=== PATIENT | male | born 1975 | race Caucasian/White ===

== ENCOUNTER 2020-06-16 03:00 | Emergency (ER) | payer MEDICAID ==
[~2020-06-16] VITALS: Ht 175.3 cm; Wt 72.7 kg
[~2020-06-16 03:00] MED LIST: CLIN-97 PO; MAGN400C PO; POTA-82 PO
[2020-06-16 03:16] VITALS: BP 111/84
--- NOTE | 2020-06-16 05:06 | NUR ---
PT REQUESTS SOMETHING FOR HIS SEVERE PAIN TO HIS LEFT WRIST. HE IS ON THE GURNEY SHAKING. GIVEN BLANKETS. I REPORT TO HIM THAT I NEED TO DRAW LABS. DR. ELLIS UPDATED AND VERBAL RECEIVED FOR NAPROXEN.
[2020-06-16] MEDS ORDERED: naproxen 500mg tablet PO ONE (05:10)
--- NOTE | 2020-06-16 05:19 | NUR ---
PT UPDATED THAT MD HAS ORDERED NAPROXIN FOR HIS PAIN. HE STATED, "THIS IS THE WORST PAIN IV EVER BEEN IN...I'M LEAVINIG...I'M GOING TO THE OTHER HOSPITAL...". PT ENCOURAGED TO TRY THE NAPROXIN AND ALLOW ME TO AT LEAST DRAW THE LABS AND GET THEM STARTED, BUT HE CONTINIUED WALKING AND STATED MULTIPLE TIMES,"I ANSWERED THE DRUG QUESTION WRONG". DR. ELLIS WITNESSED THE PATIENT WALKING OUT AND THEN UPDATED OF ABOVE. TAKER AWAY, MAYKEL, ALSO UPDATED. PT THEN IN LOBBY AND REQUESTED TO HAVE HIS XRAY RECORDS. I UPDATED HIM THEY WOULD BE AVAILABLE TO ANOTHER HOSPITAL EASILY ONCE THEY REQUEST THEM AND THAT HE CAN FILL OUT A MEDICAL RECORDS REQUEST FORM, BUT THEY ARE TAKING LONGER TO MAIL THESE OUT DUE TO COVID.
[2020-06-16] MEDS ORDERED: sulfamethoxazole/trimethoprim DS (800/160mg) tablet PO ONE (05:20)
--- NOTE | 2020-06-16 05:26 | NUR ---
PT AMA PER DR. ELLIS
[2020-06-16] MEDS ORDERED: CLIN150C8 PO (15:16)
[2020-06-16] MEDS ORDERED: NAPR-56 PO (15:38)
== END 2020-06-16 05:30 | disposition left against medical advice (07) ==
LOC: ER 03:01
DX: S66.912A Strain of unspecified muscle, fascia and tendon at wrist and hand level, left hand, initial encounter (principal); L03.114 Cellulitis of left upper limb; F15.10 Other stimulant abuse, uncomplicated; F17.200 Nicotine dependence, unspecified, uncomplicated; F12.90 Cannabis use, unspecified, uncomplicated; Z59.0 Homelessness; Z72.89 Other problems related to lifestyle; Z79.2 Long term (current) use of antibiotics; Z79.899 Other long term (current) drug therapy; W17.89XA Other fall from one level to another, initial encounter; Y93.89 Activity, other specified; Y92.89 Other specified places as the place of occurrence of the external cause; Y99.8 Other external cause status
CPT/HCPCS: 73110; 99283; 99284

== ENCOUNTER 2020-06-16 13:40 | Emergency (ER) | payer MEDICAID ==
[~2020-06-16] VITALS: Ht 175.3 cm; Wt 72.7 kg
[2020-06-16 14:02] VITALS: BP 124/81
--- NOTE | 2020-06-16 14:28 | NUR ---
PT RPEORTS THAT HE DID NOT TAKE SEPTRA OR TYLENOL THIS AM.
[2020-06-16] MEDS ORDERED: CLIN150C8 PO (15:16)
[2020-06-16] MEDS ORDERED: clindamycin 150mg capsule PO ONE (15:20)
[2020-06-16] MEDS ORDERED: ondansetron 4mg rapidly disintigrating tab PO ONE (15:20)
[2020-06-16] MEDS ORDERED: naproxen 500mg tablet PO ONE (15:30)
[2020-06-16] MEDS ORDERED: NAPR-56 PO (15:38)
--- NOTE | 2020-06-16 15:45 | NUR ---
Pt left prior to receiving medication.
== END 2020-06-16 15:47 | disposition home or self-care (01) ==
LOC: ER 13:42
DX: L03.114 Cellulitis of left upper limb (principal); F12.90 Cannabis use, unspecified, uncomplicated; F15.90 Other stimulant use, unspecified, uncomplicated; Z59.0 Homelessness; Z72.89 Other problems related to lifestyle; Z86.19 Personal history of other infectious and parasitic diseases; Z79.2 Long term (current) use of antibiotics; Z79.899 Other long term (current) drug therapy
CPT/HCPCS: 99283

== ENCOUNTER 2020-06-17 20:42 | Inpatient (IN) | payer MEDICAID ==
[~2020-06-17] VITALS: Ht 175.3 cm; Wt 65.3 kg
[2020-06-17 18:00] VITALS: BP 109/62
[~2020-06-17 20:42] MED LIST changes: +CLIN150C8 PO; +NAPR-56 PO
[2020-06-17 22:42] LABS: BASOPHILS # (AUTO) 0.1 X10'3 (0-0.2); BASOPHILS % (AUTO) 0.6 % (0-1); EOSINOPHILS # (AUTO) 0.3 X10'3 (0-0.9); EOSINOPHILS % (AUTO) 3.1 % (0-6); HEMATOCRIT 43.2 % (42.0-52.0); HEMOGLOBIN 14.6 g/dl (14.0-17.9); LYMPHOCYTES # (AUTO) 1.8 X10'3 (1.1-4.8); MEAN CORPUSCULAR HGB CONC 33.8 g/dL (33.0-36.5); MEAN CORPUSCULAR VOLUME 94.8 FL (78-98); MEAN PLATELET VOLUME 7.4 FL (7.4-10.4); MONOCYTES # (AUTO) 0.8 X10'3 (0-0.9); MONOCYTES % (AUTO) 8.2 % (2-12); NEUTROPHILS # (AUTO) 6.9 X10'3 (1.8-7.7); NEUTROPHILS % (AUTO) 70.1 % (42-75); PLATELET COUNT 293 X10'3 (140-440); RED BLOOD COUNT 4.55 X10'6 (4.70-6.10); RED CELL DISTRIBUTION WIDTH 13.4 % (11.5-14.5); WHITE BLOOD COUNT 9.9 X10'3 (4.5-11.0)
[2020-06-17] MEDS ORDERED: piperacillin/tazo 3.375gm/50ml 50 ML IV ONE (22:55)
[2020-06-17] MEDS ORDERED: vancomycin/NS 1 GM ADD-VANTAGE 250 ML IV ONE (22:55)
[2020-06-17 22:57] LABS: ALANINE AMINOTRANSFERASE 33 U/L (12-78); ALBUMIN 3.4 G/DL (3.4-5.0); ALBUMIN/GLOBULIN RATIO 0.8 (1.1-1.5); ALKALINE PHOSPHATASE 123 IU/L (46-116); ANION GAP 5 (8-16); ASPARTATE AMINO TRANSFERASE 17 U/L (10-37); BILIRUBIN,TOTAL 0.4 MG/DL (0.1-1.0); BLOOD UREA NITROGEN 18 MG/DL (7-18); BUN/CREATININE RATIO 14.8 (5.4-32.0); CALCIUM 9.5 MG/DL (8.5-10.1); CHLORIDE 104 MMOL/L (99-107); CREATININE 1.22 MG/DL (0.60-1.10); GLUCOSE 117 MG/DL (70-104); POTASSIUM 3.8 MMOL/L (3.5-5.1); SODIUM 139 MMOL/L (135-145); TOTAL CARBON DIOXIDE 29.9 MMOL/L (24-32); TOTAL PROTEIN 7.5 G/DL (6.4-8.2); eGFR 65 ML/MIN
[2020-06-17] MEDS ORDERED: normal saline 1000ML IV soln IVB ONE (23:15)
[2020-06-17] MEDS ORDERED: mag hydrox/Alum hydrox/simeth 30ml oral suspension PO PRN (23:45)
[2020-06-17] MEDS ORDERED: potassium Cl 20 mEq SR tablet PO PRN ×2 (23:45)
[2020-06-17] MEDS ORDERED: magnesium 2GM in 50ml NS 50 ML IV PRN (23:45)
[2020-06-17] MEDS ORDERED: magnesium hydroxide 30ml (MOM) UD suspension PO PRN (23:45)
[2020-06-17] MEDS ORDERED: HYDROcodone/acetaminophen 5mg/325mg tablet PO PRN (23:45)
[2020-06-17] MEDS ORDERED: ondansetron/PF 4mg/2ml inj IV PRN (23:45)
[2020-06-17] MEDS ORDERED: magnesium 4gm in 100ml NS 100 ML IV PRN (23:45)
[2020-06-17] MEDS ORDERED: ipratropium/albuterol 3ml nebule NEB PRN (23:45)
[2020-06-17] MEDS ORDERED: potassium Cl 40MEQ/1/2NS 520ml 520 ML IV PRN ×2 (23:45)
[2020-06-17] MEDS ORDERED: acetaminophen 325mg tablet PO PRN ×2 (23:45)
[2020-06-18] MEDS: normal saline 1000ml 1,000 ML IV SCH ×3 (00:43→19:45)
--- NOTE | 2020-06-18 01:29 | NUR ---
I have received report from TIFFNAY Petit and had the opportunity to ask questions and assume patient care. 0030: Patient arrived to unit via wheel chair and his bag of belongings. The bag contained shirt, cell phone, and breakfast manager. It also had two medications (ABX)which he got 06/16 clindamycin, and Naproxen. Medications will be sent down to pharmacy. Patient is wearing his jeans, socks, and his shoes are at his bedside.
--- NOTE | 2020-06-18 04:27 | NUR ---
First set of vitals were done at 0030 of 05/19, not 05/18 at 1800 Addendum: 06/18/20 at 0428 by Deepak Amos RN Amended: Links added.
--- NOTE | 2020-06-18 06:23 | NUR ---
Problems reprioritized. Patient report given, questions answered & plan of care reviewed with TIFFANY Rosas.
--- NOTE | 2020-06-18 06:39 | NUR ---
Patient in room IAN 344. I have received report from TIFFANY MOORE and had the opportunity to ask questions and assume patient care.
[2020-06-18 07:06] LABS: BASOPHILS # (AUTO) 0.1 X10'3 (0-0.2); BASOPHILS % (AUTO) 0.7 % (0-1); EOSINOPHILS # (AUTO) 0.4 X10'3 (0-0.9); EOSINOPHILS % (AUTO) 4.3 % (0-6); HEMATOCRIT 42.6 % (42.0-52.0); HEMOGLOBIN 14.4 g/dl (14.0-17.9); LYMPHOCYTES # (AUTO) 2.1 X10'3 (1.1-4.8); LYMPHOCYTES % (AUTO) 23.5 % (21-51); MEAN CORPUSCULAR HEMOGLOBIN 32.4 PG (27.0-31.0); MEAN CORPUSCULAR HGB CONC 33.9 g/dL (33.0-36.5); MEAN CORPUSCULAR VOLUME 95.8 FL (78-98); MEAN PLATELET VOLUME 7.8 FL (7.4-10.4); MONOCYTES # (AUTO) 0.9 X10'3 (0-0.9); MONOCYTES % (AUTO) 10.3 % (2-12); NEUTROPHILS # (AUTO) 5.6 X10'3 (1.8-7.7); NEUTROPHILS % (AUTO) 61.2 % (42-75); PLATELET COUNT 255 X10'3 (140-440); RED BLOOD COUNT 4.45 X10'6 (4.70-6.10); RED CELL DISTRIBUTION WIDTH 13.2 % (11.5-14.5); WHITE BLOOD COUNT 9.1 X10'3 (4.5-11.0)
[2020-06-18 07:18] LABS: ALANINE AMINOTRANSFERASE 28 U/L (12-78); ALBUMIN 2.7 G/DL (3.4-5.0); ALBUMIN/GLOBULIN RATIO 0.7 (1.1-1.5); ALKALINE PHOSPHATASE 105 IU/L (46-116); ANION GAP 7 (8-16); ASPARTATE AMINO TRANSFERASE 16 U/L (10-37); BILIRUBIN,TOTAL 0.3 MG/DL (0.1-1.0); BLOOD UREA NITROGEN 18 MG/DL (7-18); BUN/CREATININE RATIO 19.4 (5.4-32.0); CALCIUM 8.5 MG/DL (8.5-10.1); CHLORIDE 108 MMOL/L (99-107); CREATININE 0.93 MG/DL (0.60-1.10); GLUCOSE 100 MG/DL (70-104); POTASSIUM 3.8 MMOL/L (3.5-5.1); SODIUM 141 MMOL/L (135-145); TOTAL CARBON DIOXIDE 26.4 MMOL/L (24-32); TOTAL PROTEIN 6.7 G/DL (6.4-8.2); eGFR 88 ML/MIN
[2020-06-18 08:00] VITALS: BP 126/78
[2020-06-18] MEDS: K and/or MAG REPLACEMENT MC SCH ×2 (08:00→20:00)
[2020-06-18] MEDS: HYDROcodone/acetaminophen 10/325mg tab PO PRN ×4 (08:01→20:23)
[2020-06-18] MEDS: piperacillin/tazo 3.375gm/50ml 50 ML IV SCH ×2 (08:01→16:26)
[2020-06-18] MEDS ORDERED: vancomycin/NS 1 GM ADD-VANTAGE 250 ML IV SCH (10:00)
--- NOTE | 2020-06-18 10:29 | NUR ---
promotional table spacer PAGER ID: [phone] MESSAGE: Ada/surgical [id number]. Pt: Kimberly. Rm: 344-A Pt requesting more pain med. gave Basehor 10 2hr ago. threatening to leave AMA. thank Dr Amato called back. He will re-eval pain meds after seeing pt. ok if pt wants to leave AMA.
[2020-06-18 11:00] VITALS: BP 135/72
[2020-06-18] MEDS ORDERED: NAPR-996 PO (11:04)
[2020-06-18] MEDS ORDERED: CLIN-30 PO (11:04)
[2020-06-18] MEDS: nicotine 21mg patch - 24 hr TD SCH (11:12)
--- NOTE | 2020-06-18 11:20 | NUR ---
Pt decided no to leave at this time. states he will stay because he wants to have the MRI done.
[2020-06-18] MEDS: vancomycin/NS 1 GM ADD-VANTAGE 250 ML IV SCH ×2 (11:32→23:35)
--- NOTE | 2020-06-18 18:30 | NUR ---
Problems reprioritized. Patient report given, questions answered & plan of care reviewed with Leah RN.
[2020-06-18 19:30] VITALS: BP 121/69
[2020-06-18] MEDS: enoxaparin 40mg/0.4ml syringe SQ SCH (20:05)
[2020-06-18 23:30] VITALS: BP 127/78
[2020-06-19] MEDS: HYDROcodone/acetaminophen 10/325mg tab PO PRN ×5 (00:51→20:40)
[2020-06-19] MEDS: piperacillin/tazo 3.375gm/50ml 50 ML IV SCH ×3 (01:24→16:39)
[2020-06-19] MEDS: normal saline 1000ml 1,000 ML IV SCH ×2 (05:56→16:39)
[2020-06-19 06:00] LABS: EOSINOPHILS # (AUTO) 0.4 X10'3 (0-0.9); WHITE BLOOD COUNT 9.9 X10'3 (4.5-11.0)
[2020-06-19 06:02] LABS: BASOPHILS # (AUTO) 0.1 X10'3 (0-0.2); BASOPHILS % (AUTO) 0.8 % (0-1); EOSINOPHILS % (AUTO) 3.9 % (0-6); HEMATOCRIT 43.4 % (42.0-52.0); HEMOGLOBIN 14.9 g/dl (14.0-17.9); MEAN CORPUSCULAR HEMOGLOBIN 32.8 PG (27.0-31.0); MEAN CORPUSCULAR HGB CONC 34.4 g/dL (33.0-36.5); MEAN CORPUSCULAR VOLUME 95.4 FL (78-98); MEAN PLATELET VOLUME 7.3 FL (7.4-10.4); MONOCYTES # (AUTO) 0.9 X10'3 (0-0.9); MONOCYTES % (AUTO) 8.8 % (2-12); NEUTROPHILS # (AUTO) 6.6 X10'3 (1.8-7.7); NEUTROPHILS % (AUTO) 66.5 % (42-75); PLATELET COUNT 290 X10'3 (140-440); RED BLOOD COUNT 4.55 X10'6 (4.70-6.10); RED CELL DISTRIBUTION WIDTH 13.6 % (11.5-14.5)
[2020-06-19 06:27] LABS: ALANINE AMINOTRANSFERASE 34 U/L (12-78); ALBUMIN 2.8 G/DL (3.4-5.0); ALBUMIN/GLOBULIN RATIO 0.6 (1.1-1.5); ALKALINE PHOSPHATASE 114 IU/L (46-116); ANION GAP 10 (8-16); ASPARTATE AMINO TRANSFERASE 24 U/L (10-37); BILIRUBIN,TOTAL 0.5 MG/DL (0.1-1.0); BLOOD UREA NITROGEN 9 MG/DL (7-18); BUN/CREATININE RATIO 10.7 (5.4-32.0); CALCIUM 8.9 MG/DL (8.5-10.1); CHLORIDE 105 MMOL/L (99-107); CREATININE 0.84 MG/DL (0.60-1.10); GLUCOSE 96 MG/DL (70-104); MAGNESIUM 1.9 MG/DL (1.5-2.4); SODIUM 140 MMOL/L (135-145); TOTAL CARBON DIOXIDE 25.2 MMOL/L (24-32); TOTAL PROTEIN 7.4 G/DL (6.4-8.2); eGFR > 90 ML/MIN
--- NOTE | 2020-06-19 06:30 | NUR ---
Patient in room IAN 344. I have received report from TIFFANY Lynn and had the opportunity to ask questions and assume patient care.
[2020-06-19 07:00] VITALS: BP 120/79
[2020-06-19] MEDS: K and/or MAG REPLACEMENT MC SCH ×2 (07:00→19:36)
[2020-06-19] MEDS: lactobacillus rhamnosus 10,000 MMU CELLS/CAPSULE PO SCH ×2 (07:55→19:41)
[2020-06-19] MEDS: nicotine 21mg patch - 24 hr TD SCH (07:56)
[2020-06-19 11:00] VITALS: BP 115/77
[2020-06-19] MEDS ORDERED: VANCOMYCIN LEVEL IV ONE (11:30)
[2020-06-19] MEDS: vancomycin/NS 1 GM ADD-VANTAGE 250 ML IV SCH (11:52)
--- NOTE | 2020-06-19 17:30 | NUR ---
Primary nurse into give patient pain medication. Patient stating that he wants to leave AMA at midnight. Patient was encouraged to stay and educated about the risks involved with leaving AMA. Patient stated and understanding of the teaching and said, "I don't know we will see, it is new years pattie you know?".
[2020-06-19 18:00] VITALS: BP 114/61
--- NOTE | 2020-06-19 18:19 | NUR ---
Problems reprioritized. Patient report given, questions answered & plan of care reviewed with TIFFANY Govea.
--- NOTE | 2020-06-19 18:40 | NUR ---
Patient in room IAN 344. I have received report from LALIT ALLEN and had the opportunity to ask questions and assume patient care.
--- NOTE | 2020-06-19 19:46 | NUR ---
PATIENT REFUSED LOVENOX AND WAS EDUCATED .
[2020-06-19] MEDS: enoxaparin 40mg/0.4ml syringe SQ SCH (19:47)
[2020-06-20] VITALS: BP 118/61
[2020-06-20] MEDS: HYDROcodone/acetaminophen 10/325mg tab PO PRN ×2 (00:52→04:48)
[2020-06-20] MEDS: piperacillin/tazo 3.375gm/50ml 50 ML IV SCH ×2 (00:52→07:34)
[2020-06-20] MEDS: normal saline 1000ml 1,000 ML IV SCH ×2 (01:45→04:52)
--- NOTE | 2020-06-20 04:31 | NUR ---
PATIENT ATTEMPTED TO LEAVE AMA DUE TO PAIN MEDICATIONS NOT GIVE ACCORDING TO HIS SCHEDULE. EXPLAINED TO PATIENT THE FREQUENCY OF HIS PAIN MEDS AND DID NOT WANT TO COMPLY. MD NOTIFIED AND CHARGE NURSE AWARE. WILL ADMINISTER MEDS PER MD ORDER.
--- NOTE | 2020-06-20 06:34 | NUR ---
Problems reprioritized. Patient report given, questions answered & plan of care reviewed with KYLE ALLEN.
[2020-06-20] MEDS: nicotine 21mg patch - 24 hr TD SCH (07:34)
[2020-06-20] MEDS: lactobacillus rhamnosus 10,000 MMU CELLS/CAPSULE PO SCH (07:34)
--- NOTE | 2020-06-20 09:11 | NUR ---
PATIENT HAD HIS PAIN MED THIS MORNING AT 0448. HE ASKED FOR A PAIN MED WHEN I CAME IN TO GIVE HIM HIS MORNING MEDS. I LET HIM KNOW THAT HE WAS DUE FOR A PRN 10 NORCO AT 0848. AT 0852 I WENT IN HIS ROOM TO GIVE HIM HIS PAIN PILL AND HE WAS DRESSED AND STATED, I'M LEAVING. I ASKED WHY HE SAID I DIDN'T GET MY PAIN PILL. I STATED, I'M HERE TO GIVE YOU YOUR PAIN MED.I EXPLAINED TO THE PATIENT THAT IT IS CURRENTLY 0852 AND I'M HERE TO GIVE YOU THE PAIN MED YOU REQUESTED. I DON'T UNDERSTAND WHY YOU CAN'T WAIT 4 MINUTES. HE WAS PLEASANT BUT STATED HE NEEDS TO GO HOME AND TAKE HIS PAIN PILLS, AND THEN AFTER HE TAKES THEM HE WILL COME BACK THROUGH THE ER AND ADMIT HIMSELF AGAIN. PATIENT, LET ME TAKE OUT HIS IV AND SIGNED AMA PAPER. HOSPITALIST NOTIFIED. CHARGE SPOKE WITH PATIENT ALSO.
[2020-06-21] MEDS ORDERED: VANCOMYCIN LEVEL IV ONE (11:30)
== END 2020-06-20 08:58 | disposition left against medical advice (07) | DRG 383 ==
LOC: ER 20:43 → ED HOLD 23:44 → SUR 3N 06-18 00:30
PROVIDERS: ADMIT Family Medicine; ATTEND Family Medicine
DX: L03.114 Cellulitis of left upper limb (principal); B19.20 Unspecified viral hepatitis C without hepatic coma; F15.10 Other stimulant abuse, uncomplicated; Z53.29 Procedure and treatment not carried out because of patient's decision for other reasons; Z87.891 Personal history of nicotine dependence
CPT/HCPCS: 36415; 73218; 80053; 80202; 83605; 83735; 84145; 85025; 87040; 87081; 94760; 96365; 99285; G0378; J1650; J2543; J3370; J7030

== ENCOUNTER 2020-06-20 13:54 | Inpatient (IN) | payer MEDICAID ==
[~2020-06-20] VITALS: Ht 175.3 cm; Wt 78.7 kg
[~2020-06-20 13:54] MED LIST changes: +CLIN-30 PO; -CLIN-97 PO; -CLIN150C8 PO; -MAGN400C PO; -NAPR-56 PO; +NAPR-996 PO; -POTA-82 PO
[2020-06-20] MEDS ORDERED: ondansetron/PF 4mg/2ml inj IV ONE (18:50)
[2020-06-20] MEDS ORDERED: morphine 4 MG/ML inj SYRINge IV ONE (18:50)
[2020-06-20] MEDS ORDERED: normal saline 1000ml 1,000 ML IV ONE (19:00)
[2020-06-20 19:24] LABS: BASOPHILS % (AUTO) 0.3 % (0-1); EOSINOPHILS # (AUTO) 0.2 X10'3 (0-0.9); EOSINOPHILS % (AUTO) 2.2 % (0-6); HEMATOCRIT 45.6 % (42.0-52.0); HEMOGLOBIN 15.7 g/dl (14.0-17.9); LYMPHOCYTES # (AUTO) 1.5 X10'3 (1.1-4.8); LYMPHOCYTES % (AUTO) 15.1 % (21-51); MEAN CORPUSCULAR HEMOGLOBIN 32.8 PG (27.0-31.0); MEAN CORPUSCULAR HGB CONC 34.5 g/dL (33.0-36.5); MEAN CORPUSCULAR VOLUME 94.9 FL (78-98); MEAN PLATELET VOLUME 7.3 FL (7.4-10.4); MONOCYTES # (AUTO) 0.6 X10'3 (0-0.9); MONOCYTES % (AUTO) 5.5 % (2-12); NEUTROPHILS # (AUTO) 7.8 X10'3 (1.8-7.7); NEUTROPHILS % (AUTO) 76.9 % (42-75); PLATELET COUNT 320 X10'3 (140-440); RED CELL DISTRIBUTION WIDTH 13.4 % (11.5-14.5); WHITE BLOOD COUNT 10.1 X10'3 (4.5-11.0)
[2020-06-20 19:38] LABS: ALANINE AMINOTRANSFERASE 47 U/L (12-78); ALBUMIN 3.2 G/DL (3.4-5.0); ALBUMIN/GLOBULIN RATIO 0.6 (1.1-1.5); ALKALINE PHOSPHATASE 143 IU/L (46-116); ANION GAP 13 (8-16); ASPARTATE AMINO TRANSFERASE 38 U/L (10-37); BILIRUBIN,TOTAL 0.2 MG/DL (0.1-1.0); BLOOD UREA NITROGEN 11 MG/DL (7-18); BUN/CREATININE RATIO 11.8 (5.4-32.0); CALCIUM 9.5 MG/DL (8.5-10.1); CHLORIDE 104 MMOL/L (99-107); CREATININE 0.93 MG/DL (0.60-1.10); GLUCOSE 101 MG/DL (70-104); POTASSIUM 4.1 MMOL/L (3.5-5.1); SODIUM 143 MMOL/L (135-145); TOTAL CARBON DIOXIDE 26.2 MMOL/L (24-32); TOTAL PROTEIN 8.5 G/DL (6.4-8.2); eGFR 88 ML/MIN
[2020-06-20] MEDS ORDERED: ondansetron/PF 4mg/2ml inj IV PRN (20:55)
[2020-06-20] MEDS ORDERED: mag hydrox/Alum hydrox/simeth 30ml oral suspension PO PRN (20:55)
[2020-06-20] MEDS ORDERED: magnesium hydroxide 30ml (MOM) UD suspension PO PRN (20:55)
[2020-06-20] MEDS ORDERED: acetaminophen 325mg tablet PO PRN (20:55)
[2020-06-20] MEDS ORDERED: potassium Cl 20 mEq SR tablet PO PRN ×2 (20:55)
[2020-06-20] MEDS ORDERED: potassium Cl 40MEQ/1/2NS 520ml 520 ML IV PRN ×2 (20:55)
[2020-06-20] MEDS ORDERED: HYDROcodone/acetaminophen 5mg/325mg tablet PO PRN (20:55)
[2020-06-20] MEDS ORDERED: magnesium 2GM in 50ml NS 50 ML IV PRN (20:55)
[2020-06-20] MEDS ORDERED: magnesium Cl slow-release 64mg tablet PO PRN (20:55)
[2020-06-20] MEDS ORDERED: magnesium 4gm in 100ml NS 100 ML IV PRN (20:55)
[2020-06-20] MEDS ORDERED: temazepam 15mg capsule PO PRN (21:00)
[2020-06-20] MEDS: VANCOmycin 1250MG/NS 250ml Bag 250 ML IV SCH (22:47)
[2020-06-21] MEDS: piperacillin/tazo 4.5gm/100ml 100 ML IV SCH ×3 (00:33→17:36)
[2020-06-21] MEDS ORDERED: morphine 4 MG/ML inj SYRINge IV ONE (01:25)
[2020-06-21] MEDS: K and/or MAG REPLACEMENT MC SCH ×2 (08:00→20:00)
--- NOTE | 2020-06-21 08:57 | NUR ---
PATIENT RECEIVED BREAKFAST
[2020-06-21] MEDS: VANCOmycin 1250MG/NS 250ml Bag 250 ML IV SCH ×2 (09:00→20:44)
[2020-06-21 09:39] LABS: BASOPHILS % (AUTO) 0.5 % (0-1); EOSINOPHILS # (AUTO) 0.4 X10'3 (0-0.9); EOSINOPHILS % (AUTO) 5.3 % (0-6); HEMATOCRIT 47.5 % (42.0-52.0); LYMPHOCYTES # (AUTO) 1.8 X10'3 (1.1-4.8); LYMPHOCYTES % (AUTO) 22.3 % (21-51); MEAN CORPUSCULAR HEMOGLOBIN 32.4 PG (27.0-31.0); MEAN CORPUSCULAR HGB CONC 33.8 g/dL (33.0-36.5); MEAN CORPUSCULAR VOLUME 95.8 FL (78-98); MEAN PLATELET VOLUME 7.2 FL (7.4-10.4); MONOCYTES # (AUTO) 0.6 X10'3 (0-0.9); MONOCYTES % (AUTO) 7.1 % (2-12); NEUTROPHILS # (AUTO) 5.3 X10'3 (1.8-7.7); NEUTROPHILS % (AUTO) 64.8 % (42-75); PLATELET COUNT 305 X10'3 (140-440); RED BLOOD COUNT 4.96 X10'6 (4.70-6.10); RED CELL DISTRIBUTION WIDTH 13.5 % (11.5-14.5); WHITE BLOOD COUNT 8.2 X10'3 (4.5-11.0)
[2020-06-21 10:14] LABS: ALANINE AMINOTRANSFERASE 55 U/L (12-78); ALBUMIN 3.3 G/DL (3.4-5.0); ALBUMIN/GLOBULIN RATIO 0.6 (1.1-1.5); ALKALINE PHOSPHATASE 152 IU/L (46-116); ANION GAP 10 (8-16); ASPARTATE AMINO TRANSFERASE 49 U/L (10-37); BILIRUBIN,TOTAL 0.6 MG/DL (0.1-1.0); BLOOD UREA NITROGEN 16 MG/DL (7-18); BUN/CREATININE RATIO 17.4 (5.4-32.0); CALCIUM 9.4 MG/DL (8.5-10.1); CHLORIDE 103 MMOL/L (99-107); CREATININE 0.92 MG/DL (0.60-1.10); GLUCOSE 86 MG/DL (70-104); MAGNESIUM 2.1 MG/DL (1.5-2.4); POTASSIUM 4.1 MMOL/L (3.5-5.1); SODIUM 141 MMOL/L (135-145); TOTAL CARBON DIOXIDE 28.1 MMOL/L (24-32); TOTAL PROTEIN 8.4 G/DL (6.4-8.2); eGFR 89 ML/MIN
--- NOTE | 2020-06-21 10:17 | NUR ---
PER PHARMACY VANCOMYCIN IS COMPATIBLE WITH ZOSYN GTT
[2020-06-21 12:37] LABS: URINE AMPHETAMINE SCREEN POSITIVE (Neg); URINE BARBITUATE SCREEN NEGATIVE (Neg); URINE BENZODIAZEPINES SCREEN NEGATIVE (Neg); URINE CANNABINOID SCREEN POSITIVE (Neg); URINE COCAINE SCREEN NEGATIVE (Neg); URINE METHADONE SCREEN NEGATIVE (Neg); URINE OPIATE SCREEN POSITIVE (Neg); URINE PHENCYCLIDINE SCREEN NEGATIVE (Neg)
--- NOTE | 2020-06-21 12:47 | NUR ---
recdoroteo heart healthy lunch tray
[2020-06-21 15:58] VITALS: BP 117/88
[2020-06-21 18:00] VITALS: BP 115/77
--- NOTE | 2020-06-21 18:00 | NUR ---
Problems reprioritized. Patient report given, questions answered & plan of care reviewed with ALFONZO ALLEN.
--- NOTE | 2020-06-21 18:25 | NUR ---
Patient in room IAN 355. I have received report from KM ALLEN and had the opportunity to ask questions and assume patient care.
[2020-06-21] MEDS: enoxaparin 40mg/0.4ml syringe SQ SCH (20:00)
--- NOTE | 2020-06-21 20:05 | NUR ---
SPOKE TO MD TORRES REGARDING PATIENT. BRIAN ORDERED A REGULAR DIET FOR PATIENT. NORCO 10/325 IS ORDERED FOR SEVERE PAIN Q 4 HRS PRN, AND MORPHINE 2 MG Q 2 HR PRN. NO NEW ORDERS.+
[2020-06-21] MEDS: lactobacillus rhamnosus 10,000 MMU CELLS/CAPSULE PO SCH (20:43)
[2020-06-21] MEDS ORDERED: HYDROcodone/acetaminophen 10/325mg tab PO PRN (21:15)
[2020-06-21] MEDS ORDERED: morphine 2 MG/ML inj. syringe IV PRN (21:15)
[2020-06-22] VITALS: BP 117/69
[2020-06-22] MEDS: piperacillin/tazo 4.5gm/100ml 100 ML IV SCH ×5 (00:25→23:44)
--- NOTE | 2020-06-22 06:26 | NUR ---
Problems reprioritized. Patient report given, questions answered & plan of care reviewed with FRANNIE ALLEN.
--- NOTE | 2020-06-22 06:34 | NUR ---
Patient in room IAN 355. I have received report from LETA ALLEN and had the opportunity to ask questions and assume patient care.
[2020-06-22 07:00] VITALS: BP 108/73
[2020-06-22] MEDS: enoxaparin 40mg/0.4ml syringe SQ SCH (07:36)
[2020-06-22] MEDS: lactobacillus rhamnosus 10,000 MMU CELLS/CAPSULE PO SCH ×2 (07:37→20:27)
--- NOTE | 2020-06-22 07:39 | NUR ---
PATIENT REFUSED ENOXAPARIN. HE WAS EDUCATED ON THE MEDICAL VALUE OF IT AND REFUSED ANYWAY.
[2020-06-22] MEDS: K and/or MAG REPLACEMENT MC SCH ×2 (08:00→20:00)
[2020-06-22] MEDS ORDERED: VANCOMYCIN LEVEL IV ONE (08:30)
[2020-06-22] MEDS: VANCOmycin 1250MG/NS 250ml Bag 250 ML IV SCH ×2 (09:03→18:42)
[2020-06-22] MEDS: morphine 2 MG/ML inj. syringe IV PRN ×3 (09:07→20:29)
--- NOTE | 2020-06-22 09:24 | NUR ---
PATIENT IS MESSING WITH HIS IV LINE AND CAUSING BUBBLES INTENTIONALLY. TECH CAME TO LET ME KNOW. I SENT THE CHARGE NURSE TO SPEAK WITH PATIENT
--- NOTE | 2020-06-22 09:27 | NUR ---
I was requested by the primary nurse Joslyn to talk to the patient because he was complaining about her not giving his medicine and not fixing the IV beeping. When I came to the room I was beeping due to air. Patient was also biting the tubing, I discouraged him for doing it. I instructed to patient to let the nurse handle any issue with his IV. Patient states "I think she did that on purpose! I don't want her back here!" I reprimed the IV tubing and the patient was thankful afterwards. I told patient that I dont have anybody to replace the nurse at this time and that I will make sure that this particular nurse not reassigned to him tomorrow if she is back. Patient calm now after I spoke to him. Addendum: 06/22/20 at 0936 by Zenaida Robb RN Correction to the typo error: *IV was beeping NOT I was beeping
--- NOTE | 2020-06-22 10:25 | NUR ---
PATIENT REFUSED TO HAVE HIS LABS DRAWIN. SPOKE WITH LAB TO VERIFY
--- NOTE | 2020-06-22 10:37 | NUR ---
Patient refused blood draw including Vanco trough level. I explained to patient that it is very important for us to know the Vanco level as it can mess up the kidneys if we keep giving the Vanco without checking the level. Patient persistently refusing the blood draw despite explaining the reason why its needed and possible risk of not checking the Vanco level. Pharmacist notified
[2020-06-22 11:00] VITALS: BP 108/69
--- NOTE | 2020-06-22 11:20 | NUR ---
PATIENT REFUSED BLOOD DRAW X 3. UNABLE TO CHECK FOR K+ AND MAG PROTOCOL
--- NOTE | 2020-06-22 13:00 | NUR ---
Dr. Somers was informed over the phone about patient refusal of lab draw including Vanco trough. He asked me to tell patient that we need to get it done or his kidneys might fail. I talked to patient about this conversation, patient agreed to have blood draw. Lab notified
[2020-06-22 13:28] LABS: BASOPHILS # (AUTO) 0.1 X10'3 (0-0.2); BASOPHILS % (AUTO) 1.1 % (0-1); EOSINOPHILS # (AUTO) 0.5 X10'3 (0-0.9); EOSINOPHILS % (AUTO) 6.1 % (0-6); HEMATOCRIT 45.1 % (42.0-52.0); HEMOGLOBIN 15.2 g/dl (14.0-17.9); LYMPHOCYTES # (AUTO) 1.6 X10'3 (1.1-4.8); LYMPHOCYTES % (AUTO) 21.3 % (21-51); MEAN CORPUSCULAR HEMOGLOBIN 31.9 PG (27.0-31.0); MEAN CORPUSCULAR HGB CONC 33.6 g/dL (33.0-36.5); MEAN CORPUSCULAR VOLUME 94.7 FL (78-98); MONOCYTES # (AUTO) 0.6 X10'3 (0-0.9); MONOCYTES % (AUTO) 8.5 % (2-12); NEUTROPHILS # (AUTO) 4.7 X10'3 (1.8-7.7); PLATELET COUNT 358 X10'3 (140-440); RED BLOOD COUNT 4.76 X10'6 (4.70-6.10); RED CELL DISTRIBUTION WIDTH 13.5 % (11.5-14.5); WHITE BLOOD COUNT 7.4 X10'3 (4.5-11.0)
[2020-06-22 13:38] LABS: ALANINE AMINOTRANSFERASE 57 U/L (12-78); ALBUMIN 3.2 G/DL (3.4-5.0); ALBUMIN/GLOBULIN RATIO 0.6 (1.1-1.5); ALKALINE PHOSPHATASE 150 IU/L (46-116); ANION GAP 8 (8-16); ASPARTATE AMINO TRANSFERASE 45 U/L (10-37); BILIRUBIN,TOTAL 0.2 MG/DL (0.1-1.0); BLOOD UREA NITROGEN 18 MG/DL (7-18); CALCIUM 9.5 MG/DL (8.5-10.1); CHLORIDE 104 MMOL/L (99-107); CREATININE 0.82 MG/DL (0.60-1.10); GLUCOSE 95 MG/DL (70-104); MAGNESIUM 2.1 MG/DL (1.5-2.4); POTASSIUM 4.4 MMOL/L (3.5-5.1); SODIUM 138 MMOL/L (135-145); TOTAL PROTEIN 8.4 G/DL (6.4-8.2); eGFR > 90 ML/MIN
--- NOTE | 2020-06-22 14:22 | NUR ---
PATIENT IS REFUSING MOST SERVICES TODAY. HE IS NOT WILLING TO HAVE PICTURES TAKEN
[2020-06-22] MEDS ORDERED: LORazepam 1 MG tablet PO PRN (16:05)
--- NOTE | 2020-06-22 17:17 | NUR ---
Problems reprioritized. Patient report given, questions answered & plan of care reviewed with EDISON ALLEN.
[2020-06-22 18:50] VITALS: BP 126/51
[2020-06-23] VITALS: BP 99/58
[2020-06-23] MEDS: VANCOmycin 1250MG/NS 250ml Bag 250 ML IV SCH ×2 (03:38→10:00)
[2020-06-23] MEDS: morphine 2 MG/ML inj. syringe IV PRN ×2 (03:45→08:58)
--- NOTE | 2020-06-23 06:26 | NUR ---
Problems reprioritized. Patient report given, questions answered & plan of care reviewed with MIGEL. Addendum: 06/23/20 at 0626 by Paolo Kaur RN Amended: Links added.
[2020-06-23 07:40] VITALS: BP 104/61
[2020-06-23] MEDS: lactobacillus rhamnosus 10,000 MMU CELLS/CAPSULE PO SCH (07:49)
[2020-06-23] MEDS: piperacillin/tazo 4.5gm/100ml 100 ML IV SCH (07:49)
[2020-06-23] MEDS: K and/or MAG REPLACEMENT MC SCH (07:51)
[2020-06-23] MEDS ORDERED: enoxaparin 40mg/0.4ml syringe SQ SCH (08:00)
[2020-06-23] MEDS ORDERED: VANCOMYCIN LEVEL IV ONE (08:30)
[2020-06-23 09:42] LABS: BASOPHILS % (AUTO) 0.6 % (0-1); EOSINOPHILS # (AUTO) 0.5 X10'3 (0-0.9); EOSINOPHILS % (AUTO) 5.7 % (0-6); HEMATOCRIT 47.2 % (42.0-52.0); HEMOGLOBIN 15.8 g/dl (14.0-17.9); LYMPHOCYTES # (AUTO) 1.4 X10'3 (1.1-4.8); MEAN CORPUSCULAR HEMOGLOBIN 32.1 PG (27.0-31.0); MEAN CORPUSCULAR HGB CONC 33.6 g/dL (33.0-36.5); MEAN CORPUSCULAR VOLUME 95.6 FL (78-98); MEAN PLATELET VOLUME 7.1 FL (7.4-10.4); MONOCYTES # (AUTO) 0.5 X10'3 (0-0.9); MONOCYTES % (AUTO) 6.6 % (2-12); NEUTROPHILS # (AUTO) 5.4 X10'3 (1.8-7.7); NEUTROPHILS % (AUTO) 69.1 % (42-75); PLATELET COUNT 368 X10'3 (140-440); RED BLOOD COUNT 4.93 X10'6 (4.70-6.10); RED CELL DISTRIBUTION WIDTH 13.4 % (11.5-14.5); WHITE BLOOD COUNT 7.9 X10'3 (4.5-11.0)
[2020-06-23 10:01] LABS: ALANINE AMINOTRANSFERASE 57 U/L (12-78); ALBUMIN 3.1 G/DL (3.4-5.0); ALBUMIN/GLOBULIN RATIO 0.6 (1.1-1.5); ALKALINE PHOSPHATASE 141 IU/L (46-116); ANION GAP 11 (8-16); ASPARTATE AMINO TRANSFERASE 38 U/L (10-37); BILIRUBIN,TOTAL 0.4 MG/DL (0.1-1.0); BLOOD UREA NITROGEN 16 MG/DL (7-18); BUN/CREATININE RATIO 16.3 (5.4-32.0); CHLORIDE 104 MMOL/L (99-107); CREATININE 0.98 MG/DL (0.60-1.10); GLUCOSE 120 MG/DL (70-104); MAGNESIUM 2.2 MG/DL (1.5-2.4); POTASSIUM 3.9 MMOL/L (3.5-5.1); SODIUM 141 MMOL/L (135-145); TOTAL CARBON DIOXIDE 26.3 MMOL/L (24-32); TOTAL PROTEIN 8.2 G/DL (6.4-8.2); eGFR 83 ML/MIN
[2020-06-23 10:13] LABS: VANCOMYCIN,TROUGH 29.2 UG/ML (6.0-14.0)
[2020-06-23 11:00] VITALS: BP 113/81
--- NOTE | 2020-06-23 11:04 | NUR ---
PATIENT STABLE AND APPROPRIATE FOR DISCHARGE HOME. IV REMOVED, ALL BELONGINGS TAKEN FROM ROOM. HOME MEDICATIONS RETURNED TO PATIENT FROM OUR PHARMACY, NO NEW PRESCRIPTIONS. ALL DISCHARGE INSTRUCTIONS AND EDUCATION GIVEN AND REVIEWED WITH PATIENT, ALL QUESTIONS ANSWERED. PATIENT IS AWARE OF NEXT DUE DOSE ON HIS MEDICATIONS.
== END 2020-06-23 11:01 | disposition home or self-care (01) | DRG 383 ==
LOC: ER 13:55 → ED HOLD 20:52 → SUR 3N 06-21 15:40
PROVIDERS: ADMIT Family Medicine; ATTEND Family Medicine
DX: L03.114 Cellulitis of left upper limb (principal); F15.10 Other stimulant abuse, uncomplicated; B19.20 Unspecified viral hepatitis C without hepatic coma; F19.10 Other psychoactive substance abuse, uncomplicated; Z59.0 Homelessness; Z79.899 Other long term (current) drug therapy; Z71.51 Drug abuse counseling and surveillance of drug abuser; Z72.0 Tobacco use; Z71.6 Tobacco abuse counseling
CPT/HCPCS: 36415; 80053; 80202; 80305; 83605; 83735; 84145; 85025; 87081; 96374; 96375; 99285; G0378; J2270; J2405; J2543; J3370; J7030

== ENCOUNTER 2021-12-26 01:29 | Emergency (ER) | payer MEDICAID ==
[~2021-12-26] VITALS: Ht 175.3 cm; Wt 81.8 kg
[2021-12-26] MEDS ORDERED: cephalexin 500mg capsule PO ONE (07:15)
[2021-12-26] MEDS ORDERED: LIDOcaine 1% W/epiNEPHrine 1:100,000 20ml vial SQ ONE (07:15)
[2021-12-26] MEDS ORDERED: ketorolac trometh. 30mg/ml inj. IM ONE (07:20)
[2021-12-26] MEDS ORDERED: HYDROcodone/acetaminophen 10/325mg tab PO ONE ×2 (07:45→09:10)
[2021-12-26] MEDS ORDERED: CEPH-585 PO (09:16)
[2021-12-26] MEDS ORDERED: HYDR-3972 PO (09:17)
[2021-12-26 09:42] VITALS: BP 100/59
== END 2021-12-26 09:47 | disposition home or self-care (01) ==
LOC: ER 01:29
DX: S60.450A Superficial foreign body of right index finger, initial encounter (principal); F17.200 Nicotine dependence, unspecified, uncomplicated; F12.90 Cannabis use, unspecified, uncomplicated; F15.90 Other stimulant use, unspecified, uncomplicated; Z59.00 Homelessness unspecified; Z86.19 Personal history of other infectious and parasitic diseases; Z79.899 Other long term (current) drug therapy; X58.XXXA Exposure to other specified factors, initial encounter; Y93.89 Activity, other specified; Y92.89 Other specified places as the place of occurrence of the external cause; Y99.8 Other external cause status
CPT/HCPCS: 64450; 73140; 99284; J7030; A6449

== ENCOUNTER 2025-01-25 03:26 | Emergency (ER) | payer MEDICAID ==
[~2025-01-25] VITALS: Ht 175.3 cm; Wt 77.4 kg
[~2025-01-25 03:26] MED LIST changes: +NAPR-1168 PO; -NAPR-996 PO
[2025-01-25 03:37] VITALS: BP 143/95; PULSE 97; RESP 20; TEMP 97.6; O2SAT 98
--- NOTE | 2025-01-25 06:56 | Physician Documentation ---
History of Present Illness General Chief Complaint: Tooth Problem Stated Complaint: ABSCESS TOOTH Time Seen by MD: 06:49 Primary Medical Doctor: none History of Present Illness Initial Comments The patient is a 49-year-old male with no significant past medical history who presents with tooth pain and swelling involving the left lower jaw. This began over the past few days. Medication Reconciliation Allergies: Coded Allergies: No Known Allergies (Unverified , 06/16/20) Scheduled Clindamycin HCl (Clindamycin HCl), 1 CAP PO QID, (Reported) Naproxen (Naproxen), 1 TAB PO BID, (Reported) Past Medical History Past Medical History: Hepatitis C Past Surgical History: no surgical history Alcohol Use: Heavy Drug Use: marijuana, methamphetamine Lives In: Homeless Review of Systems ROS Constitutional: Denies chills, fatigue, fever, weight gain or weight loss. HEENT: Toothache and left lower jaw swelling Respiratory: Denies cough, shortness of breath or wheezing. Cardiovascular: Denies chest pain, pain while walking (claudication), edema or palpitations. Gastrointestinal: Denies abdominal pain, blood in stool, constipation, diarrhea, heartburn, loss of appetite, nausea or vomiting. Genitourinary: Denies painful urination (dysuria), excessive amount of urine (polyuria) or urinary frequency. Metabolic/Endocrine: Denies cold intolerance, heat intolerance, excessive thirst (polydipsia) or excessive hunger (polyphagia). Neurological: Denies dizziness, extremity numbness, extremity weakness, headaches, seizures or tremors. Psychiatric: Denies anxiety or depression. Integumentary: Denies breast discharge, breast lump, hives, mole change(s), rash or skin lesion. Musculoskeletal: Denies back pain, joint pain, joint swelling or neck pain. Hematologic: Denies easily bleeding, easily bruises, lymphedema or issues with blood clots. Immunologic: Denies food allergies or seasonal allergies. Physical Exam Physical Exam Vital Signs: Temperature: 97.6, Source: Temporal, Heart Rate: 97, Respiratory Rate: 20, BP: 143/95, Pulse Oximetry: 98, Weight: 77.400 Oxygen Flow Rate: 0 Physical Exam Physical Exam Vitals and nursing note reviewed. Constitutional: General: Patient is awake, alert, oriented x 4 in no acute distress and well appearing. Speech is clear and lucid. Appearance: Normal appearance. Patient is not ill-appearing, toxic-appearing or diaphoretic. HENT: Head: Normocephalic and atraumatic. Mouth/Throat: Swelling of left lower jaw, moderate, percussion tenderness of left lower 1st molar Mouth: Mucous membranes are moist. Pharynx: Oropharynx is clear. Progress Results/Orders Results/Orders Vital Signs 01/25/25 03:37 Temp 97.6 Pulse 97 Resp 20 B/P (MAP) 143/95 Pulse Ox 98 O2 Flow Rate 0 Medical Decision Making Findings This 49-year-old man presents with evidence of a dental abscess. I am going to start him on antibiotics and ibuprofen. Departure Disposition: HOME / SELF CARE / HOMELESS Impression: Primary Impression: Dental abscess Condition: Stable Additional Instructions: It is very important that you seek care with a dentist. In the meantime, please take the antibiotic that I have sent to your pharmacy. Return here for worsening symptoms or new/unusual symptoms. Referrals: NO PRIMARY CARE PROVIDER (PCP) Prescriptions Ibuprofen (Ibuprofen) 600 Mg Tablet 1 TAB PO Q6H PRN for pain, #30 TABLET Prov: SERGEY REED MD 01/25/25 Amoxicillin Trihydrate (Amoxicillin) 500 Mg Capsule 2 CAP PO BID, #40 CAP Prov: SERGEY REED MD 01/25/25 Signature Scribe Signature: . Attestation: . SERGEY REED MD Jan 25, 2025 06:56
[2025-01-25] MEDS ORDERED: AMOX-101 PO (06:57)
[2025-01-25] MEDS ORDERED: IBUP-1985 PO (06:57)
[2025-01-25] MEDS: ibuprofen tablet 400 MG TABLET PO ONE (07:00)
== END 2025-01-25 07:04 | disposition home or self-care (01) ==
LOC: ER 03:26
DX: K04.7 Periapical abscess without sinus (principal); F12.90 Cannabis use, unspecified, uncomplicated; F15.90 Other stimulant use, unspecified, uncomplicated
CPT/HCPCS: 99283